=== PATIENT | male | born 1950 | race Caucasian/White ===

== ENCOUNTER 2024-05-27 09:19 | Outpatient (CLI) | payer OTHER ==
[~2024-05-27 09:19] MED LIST: LOSARTAN-HCTZ1 EACH PO
== END 2024-05-27 09:33 | disposition home or self-care (01) ==
LOC: TOM 09:19
PROVIDERS: ATTEND Urology
DX: R31.21 Asymptomatic microscopic hematuria (principal)
CPT/HCPCS: 72197; 74183; Q9965; 72196; 74182